=== PATIENT | male | born 1975 | race African-American/Black ===

== ENCOUNTER 2018-12-22 16:49 | Emergency (ER) | payer OTHER ==
[2018-12-22 17:19] VITALS: BP 128/57
[2018-12-22] MEDS ORDERED: SULF1TAB24 PO (17:54)
--- NOTE | 2018-12-22 17:54 | PHYS DOC ---
Past History Past Medical History: No Pertinent History Past Surgical History: No Surgical History Alcohol Use: None Drug Use: None Adult General Chief Complaint Chief Complaint: ABSCESS HPI HPI 43-year-old male presents with buttocks abscess of the last 3 days. He has had several days in the past. Usually they come to ahead and drain on the ground. They then go away. He's never had an incision and drain at a hospital. He is in the and has had medics drain them in the past. He's never had one cultured. No history of MRSA. His last one was in a similar location 2 months ago. It resolved on its own. The patient felt like he might be running a fever so he thought he should've this evaluated. He denies any other concerns or complaints. Review of Systems Review of Systems Constitutional: Denies fever or chills [] Eyes: Denies change in visual acuity, redness, or eye pain [] HENT: Denies nasal congestion or sore throat [] Respiratory: Denies cough or shortness of breath [] Cardiovascular: No additional information not addressed in HPI [] GI: Denies abdominal pain, nausea, vomiting, bloody stools or diarrhea [] : Denies dysuria or hematuria [] Musculoskeletal: Denies back pain or joint pain [] Integument: Abscess buttocks[] Neurologic: Denies headache, focal weakness or sensory changes [] Endocrine: Denies polyuria or polydipsia [] All other systems were reviewed and found to be within normal limits, except as documented in this note. Allergies Allergies Allergies Coded Allergies Type Severity Reaction Last Updated Verified No Known Drug Allergies 12/22/18 No Physical Exam Physical Exam Constitutional: Well developed, well nourished, no acute distress, non-toxic appearance. [] HENT: Normocephalic, atraumatic, bilateral external ears normal, oropharynx moist, no oral exudates, nose normal. [] Eyes: PERRLA, EOMI, conjunctiva normal, no discharge. [] Neck: Normal range of motion, no tenderness, supple, no stridor. [] Cardiovascular:Heart rate regular rhythm, no murmur [] Lungs & Thorax: Bilateral breath sounds clear to auscultation [] Abdomen: Bowel sounds normal, soft, no tenderness, no masses, no pulsatile masses. [] Skin: 2 cm abscess of the right buttocks with surrounding cellulitis of 3 cm.[] Back: No tenderness, no CVA tenderness. [] Extremities: No tenderness, no cyanosis, no clubbing, ROM intact, no edema. [] Neurologic: Alert and oriented X 3, normal motor function, normal sensory function, no focal deficits noted. [] Psychologic: Affect normal, judgement normal, mood normal. [] Current Patient Data Vital Signs Vital Signs Date Time Temp Pulse Resp B/P (MAP) Pulse Ox O2 Delivery O2 Flow Rate FiO2 12/22/18 17:19 98.4 51 18 100 Room Air EKG EKG [] Radiology/Procedures Radiology/Procedures [] Course & Med Decision Making Course & Med Decision Making Pertinent Labs and Imaging studies reviewed. (See chart for details) The patient had a fluctuant abscess. It was draining but only thin fluid. I performed an I&D with success. See note below for more details. I'll place the patient on Bactrim DS twice a day for 7 days. He is stable for discharge at this time. [] Dragon Disclaimer Dragon Disclaimer This electronic medical record was generated, in whole or in part, using a voice recognition dictation system. Incision and Drainage Indication: 2 cm abscess of right superior buttocks. Procedure: Verbal consent was obtained from the patient for incision and drainage of his buttocks abscess. The area was cleaned with alcohol 3 times. Anesthetize the area with 2% lidocaine with epinephrine. 1.5 mL was used. A 5 mm incision was made with a #11 blade. Material was expressed. A wound culture was obtained. Loculations are broken up with a sterile Q-tip. Further purulent material was expressed. Wound was covered with clean gauze. I placed him on an antibiotic. His tetanus is up-to-date. The patient tolerated the procedure well. Complications: None. Departure Departure: Impression: Primary Impression: Abscess of buttock, right Disposition: 01 HOME, SELF-CARE Condition: IMPROVED Referrals: PCPDANIEL (PCP) Patient Instructions: Abscess, Care After Scripts Sulfamethoxazole/Trimethoprim (BACTRIM DS TABLET) 1 Each Tablet 1 TAB PO BID for abscess, #14 TAB Prov: BRIT SAMSON DO 12/22/18 BRIT SAMSON DO Dec 22, 2018 17:54
== END 2018-12-22 17:56 | disposition home or self-care (01) ==
LOC: ER 16:49
DX: L02.31 Cutaneous abscess of buttock (principal)
CPT/HCPCS: 10060; 87070; 99283